=== PATIENT | female | born 1940 | race Caucasian/White ===

== ENCOUNTER → 2018-08-04 | Outpatient (CLI) | payer OTHER | END | disposition home or self-care (01) | LOC: SHCH 08:27 | PROVIDERS: ATTEND Internal Medicine Cardiovascular Disease | DX: I07.1 Rheumatic tricuspid insufficiency (principal); I48.0 Paroxysmal atrial fibrillation | CPT/HCPCS: 93306 ==

== ENCOUNTER → 2021-03-14 | Outpatient (CLI) | payer OTHER ==
[~2021-03-14] MED LIST: ACYC400T20 PO; APIX5TAB PO; CARB200T6 PO; DRON400T7 PO; L.AC1CAP6 PO; LISI2.5T13 PO; METO50 PO; OMEP40CA21 PO
== END | disposition home or self-care (01) ==
LOC: OIH 11:04
PROVIDERS: ATTEND Internal Medicine Cardiovascular Disease
DX: Z13.6 Encounter for screening for cardiovascular disorders (principal); I25.10 Atherosclerotic heart disease of native coronary artery without angina pectoris
CPT/HCPCS: 75571

== ENCOUNTER → 2021-10-06 | Outpatient (CLI) | payer OTHER | END | disposition home or self-care (01) | LOC: SHCH 10:30 | PROVIDERS: ATTEND Internal Medicine Cardiovascular Disease | DX: I36.1 Nonrheumatic tricuspid (valve) insufficiency (principal); I42.9 Cardiomyopathy, unspecified; I11.9 Hypertensive heart disease without heart failure | CPT/HCPCS: 93306 ==

== ENCOUNTER → 2022-09-04 | Outpatient (CLI) | payer OTHER ==
[~2022-09-04] MED LIST changes: +AMIO200T44 PO; -DRON400T7 PO; +FURO40TA7 PO; +LOSA25TA2 PO; -METO50 PO; +METO50TA9 PO; +OMEP20CA12 PO; -OMEP40CA21 PO
[2022-09-04 16:36] LABS: THYROID STIMULATING HORMONE 5.93 uIU/mL (0.36-3.74)
== END | disposition home or self-care (01) ==
LOC: LAB 13:43
PROVIDERS: ATTEND Internal Medicine Cardiovascular Disease
DX: I10 Essential (primary) hypertension (principal)
CPT/HCPCS: 36415; 84439; 84443

== ENCOUNTER 2022-09-08 15:28 | Inpatient (IN) | payer OTHER ==
[~2022-09-08] VITALS: Ht 162.6 cm; Wt 54.0 kg
[2022-09-08 16:22] LABS: BASOPHILS % (AUTO) 0.3 % (0.0-5.0); EOSINOPHILS % (AUTO) 0.2 % (0.0-8.0); HEMATOCRIT 50.6 % (36-48); LYMPHOCYTES % (AUTO) 17.1 % (21.0-51.0); MEAN CORPUSCULAR HEMOGLOBIN 32.9 pg (27.0-33.0); MEAN CORPUSCULAR HGB CONC 33.4 g/dL (32.0-36.0); MEAN CORPUSCULAR VOLUME 98.6 fL (79-99); NEUTROPHILS % (AUTO) 73.6 % (40.0-77.0); PLATELET COUNT (AUTO) 201 K/uL (130-400); RED BLOOD CELL COUNT(AUTO) 5.13 MIL/uL (4.00-5.50); RED CELL DISTRIBUTION WIDTH 13.2 % (11.0-15.5); WHITE BLOOD COUNT (AUTO) 14.6 K/uL (4.8-10.8)
[2022-09-08 16:32] LABS: INR 1.27 (0.85-1.15); PROTHROMBIN TIME 13.7 SEC (9.6-11.6)
[2022-09-08 16:33] LABS: PARTIAL THROMBOPLASTIN TIME 30.5 SEC (26.3-35.5)
[2022-09-08 16:49] LABS: B-TYPE NATRIURETIC PEPTIDE 1300 pg/mL (0-100)
[2022-09-08 17:08] LABS: CREATININE 0.9 mg/dL (0.5-1.5); POTASSIUM 4.4 mmol/L (3.5-5.1)
[2022-09-08 17:13] LABS: ALBUMIN 3.2 g/dL (3.5-5.0); MAGNESIUM 1.8 mg/dL (1.80-2.40); TOTAL PROTEIN, SERUM 6.3 g/dL (6.0-8.3)
[2022-09-08] MEDS ORDERED: POTASSIUM CHLORIDE 20MEQ/100ML 100 ML IV PRN (18:00)
[2022-09-08] MEDS ORDERED: AMIODARONE 900MG VIAL 360 MG in DEXTROSE 5%-WATER 200 ML IV SCH (18:00)
[2022-09-08] MEDS ORDERED: MAGNESIUM 2GM PREMIX 50ML 50 ML IV PRN (18:00)
[2022-09-08] MEDS ORDERED: DEXTROSE 50%-WATER 50 ML DISP.SYRIN IV PRN (18:00)
[2022-09-08] MEDS ORDERED: GLUCAGON 1MG KIT 1 MG ML IM PRN (18:00)
[2022-09-08] MEDS ORDERED: FUROSEMIDE 20MG VIAL IV ONE (18:00)
[2022-09-08] MEDS ORDERED: AMIODARONE 900MG VIAL 150 MG in DEXTROSE 5%-WATER 100 ML IV SCH (18:15)
[2022-09-08] MEDS: MAGNESIUM 2GM PREMIX 50ML 50 ML IV SCH (18:19)
[2022-09-08] MEDS ORDERED: LACTULOSE 20 GM/30 ML UDCUP PO PRN (18:30)
[2022-09-08] MEDS ORDERED: ACETAMINOPHEN 325 MG TAB PO PRN (18:30)
[2022-09-08] MEDS ORDERED: DOCUSATE SODIUM 100 MG CAP PO PRN (18:30)
[2022-09-08] MEDS ORDERED: ACETAMINOPHEN 650 MG SUPPOSITORY RC PRN (18:30)
[2022-09-08 20:30] LABS: APPEARANCE,URINE CLEAR (CLEAR); BILIRUBIN,URINE NEGATIVE (NEGATIVE); COLOR,URINE YELLOW (YELLOW); GLUCOSE, URINE (UA) NEGATIVE (NEGATIVE); KETONES,URINE NEGATIVE (NEGATIVE); LEUKOCYTE ESTERASE ,URINE NEGATIVE Leu/uL (NEGATIVE); NITRATE,URINE NEGATIVE (NEGATIVE); OCCULT BLOOD,URINE SMALL (NEGATIVE); PH,URINE 5.5 (5.0-8.0); PROTEIN,URINE 20 mg/dL (NEGATIVE); UROBILINOGEN,URINE 3 mg/dL (0.2-1.0)
[2022-09-08 20:33] LABS: BACTERIA,URINE MOD /HPF (None Seen); MUCUS,URINE RARE LPF (None Seen); RBC,URINE 0-1 /HPF (0-1); SQUAMOUS EPITHELIAL CELL,UR RARE /HPF (0-2)
[2022-09-08] MEDS: INSULIN HUMULIN R 100 UNIT/ML 3ML SQ SCH (21:00)
[2022-09-08] MEDS ORDERED: FUROSEMIDE 100MG VIAL 100 MG in 0.9%NACL 100ML 100 ML IV SCH (22:00)
[2022-09-08] MEDS ORDERED: FUROSEMIDE 20MG VIAL ONE ×2 (22:12→22:13)
[2022-09-08] MEDS: APIXABAN 5 MG TABLET PO SCH (22:22)
[2022-09-08 22:50] LABS: ABG BASE EXCESS -0.8 mmol/L (-2.0-3.0); ABG OXYGEN SATURATION 98.2 % (95.0-99.0); ABG PCO2 32 mmHg (32-45)
[2022-09-09] VITALS (35 sets, daily range): BP systolic 88–134; BP diastolic 44–91
[2022-09-09] MEDS: AMIODARONE 900MG VIAL 540 MG in DEXTROSE 5%-WATER 300 ML IV SCH ×2 (01:08→16:54)
[2022-09-09] MEDS ORDERED: LABETALOL 20MG SYG IV ONE (03:30)
[2022-09-09] MEDS ORDERED: DIGOXIN 125 MCG TABLET PO ONE (04:17)
[2022-09-09] MEDS ORDERED: DIGOXIN 250 MCG/ML 2ML AMP ONE (04:19)
[2022-09-09] MEDS ORDERED: METOPROLOL SUCCINATE 50 MG TAB.SR.24H PO SCH (04:30)
[2022-09-09] MEDS: INSULIN HUMULIN R 100 UNIT/ML 3ML SQ SCH ×4 (07:30→19:58)
[2022-09-09] MEDS ORDERED: FUROSEMIDE 20MG VIAL ONE (07:50)
[2022-09-09] MEDS: FUROSEMIDE 40MG VIAL IV SCH ×2 (07:55→19:43)
[2022-09-09 08:29] LABS: BASOPHILS % (AUTO) 0.5 % (0.0-5.0); EOSINOPHILS % (AUTO) 0.3 % (0.0-8.0); HEMATOCRIT 44.6 % (36-48); LYMPHOCYTES % (AUTO) 21.9 % (21.0-51.0); MEAN CORPUSCULAR HEMOGLOBIN 32.8 pg (27.0-33.0); MEAN CORPUSCULAR HGB CONC 34.8 g/dL (32.0-36.0); MEAN CORPUSCULAR VOLUME 94.3 fL (79-99); NEUTROPHILS % (AUTO) 68.7 % (40.0-77.0); PLATELET COUNT (AUTO) 182 K/uL (130-400); RED BLOOD CELL COUNT(AUTO) 4.73 MIL/uL (4.00-5.50); RED CELL DISTRIBUTION WIDTH 13.1 % (11.0-15.5); WHITE BLOOD COUNT (AUTO) 12.6 K/uL (4.8-10.8)
[2022-09-09] MEDS: FAMOTIDINE 20MG VIAL IV SCH (08:39)
[2022-09-09] MEDS: APIXABAN 5 MG TABLET PO SCH ×2 (08:40→19:55)
[2022-09-09] MEDS: METOPROLOL SUCCINATE 50 MG TAB.SR.24H PO SCH ×2 (08:40→20:37)
[2022-09-09] MEDS: CARBAMAZEPINE 200 MG TABLET PO SCH ×2 (08:40→19:59)
[2022-09-09] MEDS: AMIODARONE 200 MG TABLET PO SCH ×2 (08:40→20:37)
[2022-09-09 08:54] LABS: CREATININE 0.9 mg/dL (0.5-1.5); MAGNESIUM 2.6 mg/dL (1.80-2.40); PHOSPHORUS 3.7 mg/dL (2.5-4.9); POTASSIUM 3.6 mmol/L (3.5-5.1); THYROID STIMULATING HORMONE 4.64 uIU/mL (0.36-3.74)
[2022-09-09] MEDS: KCL 20 MEQ ERTAB PO PRN (09:45)
[2022-09-09] MEDS: LOSARTAN 25 MG TABLET PO SCH ×2 (09:45→21:00)
[2022-09-09] MEDS: POTASSIUM CHLORIDE 10% ELIXIR 20 MEQ/15 ML UDCUP PO PRN (15:09)
[2022-09-10] VITALS (32 sets, daily range): BP systolic 85–134; BP diastolic 54–104
[2022-09-10 04:01] LABS: BASOPHILS % (AUTO) 0.2 % (0.0-5.0); EOSINOPHILS % (AUTO) 0.1 % (0.0-8.0); HEMATOCRIT 43.7 % (36-48); LYMPHOCYTES % (AUTO) 9.2 % (21.0-51.0); MEAN CORPUSCULAR HEMOGLOBIN 33.5 pg (27.0-33.0); MEAN CORPUSCULAR HGB CONC 34.1 g/dL (32.0-36.0); MEAN CORPUSCULAR VOLUME 98.2 fL (79-99); MONOCYTES % (AUTO) 6.3 % (3.0-13.0); NEUTROPHILS % (AUTO) 83.3 % (40.0-77.0); NUCLEATED RED BLOOD CELLS 0.2 % (0.0-0.19); PLATELET COUNT (AUTO) 163 K/uL (130-400); RED BLOOD CELL COUNT(AUTO) 4.45 MIL/uL (4.00-5.50); RED CELL DISTRIBUTION WIDTH 13.2 % (11.0-15.5); WHITE BLOOD COUNT (AUTO) 12.9 K/uL (4.8-10.8)
[2022-09-10 04:16] LABS: CREATININE 1.5 mg/dL (0.5-1.5); POTASSIUM 4.2 mmol/L (3.5-5.1)
[2022-09-10] MEDS: INSULIN HUMULIN R 100 UNIT/ML 3ML SQ SCH (07:30)
[2022-09-10] MEDS: FAMOTIDINE 20MG VIAL IV SCH (08:54)
[2022-09-10] MEDS: FUROSEMIDE 40MG VIAL IV SCH ×2 (08:54→20:07)
[2022-09-10] MEDS: LOSARTAN 25 MG TABLET PO SCH ×2 (08:54→21:00)
[2022-09-10] MEDS: CARBAMAZEPINE 200 MG TABLET PO SCH ×2 (08:54→20:07)
[2022-09-10] MEDS: APIXABAN 5 MG TABLET PO SCH ×2 (08:55→20:08)
[2022-09-10] MEDS: METOPROLOL SUCCINATE 50 MG TAB.SR.24H PO SCH ×2 (08:55→20:07)
[2022-09-10] MEDS: AMIODARONE 200 MG TABLET PO SCH ×2 (08:55→20:07)
[2022-09-10] MEDS: ONDANSETRON 4MG INJ IVP PRN ×2 (09:30→16:03)
[2022-09-10] MEDS ORDERED: PROPOFOL 1000 MG/100 ML 0 ML IV ONE (18:02)
[2022-09-10] MEDS: AMIODARONE 900MG VIAL 540 MG in DEXTROSE 5%-WATER 300 ML IV SCH (19:51)
[2022-09-11] VITALS (35 sets, daily range): BP systolic 89–150; BP diastolic 48–98
[2022-09-11 03:46] LABS: BASOPHILS % (AUTO) 0.3 % (0.0-5.0); EOSINOPHILS % (AUTO) 0.3 % (0.0-8.0); HEMATOCRIT 44.9 % (36-48); LYMPHOCYTES % (AUTO) 20.2 % (21.0-51.0); MEAN CORPUSCULAR HEMOGLOBIN 32.8 pg (27.0-33.0); MEAN CORPUSCULAR HGB CONC 34.1 g/dL (32.0-36.0); MEAN CORPUSCULAR VOLUME 96.4 fL (79-99); MONOCYTES % (AUTO) 9.1 % (3.0-13.0); NEUTROPHILS % (AUTO) 69.3 % (40.0-77.0); NUCLEATED RED BLOOD CELLS 0.5 % (0.0-0.19); PLATELET COUNT (AUTO) 193 K/uL (130-400); RED BLOOD CELL COUNT(AUTO) 4.66 MIL/uL (4.00-5.50); RED CELL DISTRIBUTION WIDTH 13.2 % (11.0-15.5); WHITE BLOOD COUNT (AUTO) 12.1 K/uL (4.8-10.8)
[2022-09-11 03:56] LABS: CREATININE 1.5 mg/dL (0.5-1.5); POTASSIUM 4.3 mmol/L (3.5-5.1)
[2022-09-11] MEDS ORDERED: MIDAZOLAM HCL 1 MG/ML 2ML VIAL IVP ONE (07:30)
[2022-09-11] MEDS ORDERED: FENTANYL CITRATE PF 50 MCG/1 ML 2ML VIAL IVP ONE (07:30)
[2022-09-11] MEDS: APIXABAN 5 MG TABLET PO SCH ×2 (10:49→21:28)
[2022-09-11] MEDS: METOPROLOL SUCCINATE 50 MG TAB.SR.24H PO SCH ×2 (10:49→21:28)
[2022-09-11] MEDS: AMIODARONE 200 MG TABLET PO SCH ×2 (10:49→21:28)
[2022-09-11] MEDS: CARBAMAZEPINE 200 MG TABLET PO SCH ×2 (10:49→21:27)
[2022-09-11] MEDS: FUROSEMIDE 40 MG TABLET PO SCH ×2 (10:49→17:01)
[2022-09-11] MEDS: FAMOTIDINE 20MG VIAL IV SCH (10:50)
[2022-09-11] MEDS: LOSARTAN 25 MG TABLET PO SCH ×2 (10:50→21:28)
[2022-09-12 03:55] LABS: BASOPHILS % (AUTO) 0.3 % (0.0-5.0); EOSINOPHILS % (AUTO) 0.5 % (0.0-8.0); HEMATOCRIT 48.9 % (36-48); LYMPHOCYTES % (AUTO) 13.3 % (21.0-51.0); MEAN CORPUSCULAR HEMOGLOBIN 32.8 pg (27.0-33.0); MEAN CORPUSCULAR HGB CONC 32.3 g/dL (32.0-36.0); MEAN CORPUSCULAR VOLUME 101.5 fL (79-99); NEUTROPHILS % (AUTO) 77.2 % (40.0-77.0); PLATELET COUNT (AUTO) 162 K/uL (130-400); RED BLOOD CELL COUNT(AUTO) 4.82 MIL/uL (4.00-5.50); RED CELL DISTRIBUTION WIDTH 13.1 % (11.0-15.5); WHITE BLOOD COUNT (AUTO) 8.7 K/uL (4.8-10.8)
[2022-09-12 04:04] LABS: POTASSIUM 3.6 mmol/L (3.5-5.1)
[2022-09-12 04:15] VITALS: BP 118/56
[2022-09-12] MEDS: POTASSIUM CHLORIDE 10% ELIXIR 20 MEQ/15 ML UDCUP PO PRN (06:18)
[2022-09-12] MEDS ORDERED: AMIO200T68 PO (07:00)
[2022-09-12 08:50] VITALS: BP 134/79
[2022-09-12 12:04] VITALS: BP 138/74
[2022-09-12] MEDS: LOSARTAN 25 MG TABLET PO SCH ×2 (12:12→20:26)
[2022-09-12] MEDS: FUROSEMIDE 40 MG TABLET PO SCH ×2 (12:12→17:58)
[2022-09-12] MEDS: METOPROLOL SUCCINATE 50 MG TAB.SR.24H PO SCH ×2 (12:13→20:27)
[2022-09-12] MEDS: CARBAMAZEPINE 200 MG TABLET PO SCH ×2 (12:13→20:26)
[2022-09-12] MEDS: APIXABAN 5 MG TABLET PO SCH ×2 (12:15→20:27)
[2022-09-12] MEDS: FAMOTIDINE 20MG VIAL IV SCH (12:16)
[2022-09-12] MEDS: AMIODARONE 200 MG TABLET PO SCH ×2 (12:16→20:26)
[2022-09-12 16:44] VITALS: BP 110/70
[2022-09-12 20:11] VITALS: BP 129/70
[2022-09-13 00:09] VITALS: BP 137/85
[2022-09-13 03:47] LABS: BASOPHILS % (AUTO) 0.1 % (0.0-5.0); EOSINOPHILS % (AUTO) 0.8 % (0.0-8.0); LYMPHOCYTES % (AUTO) 13.8 % (21.0-51.0); MEAN CORPUSCULAR HEMOGLOBIN 32.5 pg (27.0-33.0); MEAN CORPUSCULAR HGB CONC 33.9 g/dL (32.0-36.0); MEAN CORPUSCULAR VOLUME 96.1 fL (79-99); MONOCYTES % (AUTO) 9.6 % (3.0-13.0); NEUTROPHILS % (AUTO) 74.8 % (40.0-77.0); PLATELET COUNT (AUTO) 194 K/uL (130-400); RED CELL DISTRIBUTION WIDTH 13.1 % (11.0-15.5); WHITE BLOOD COUNT (AUTO) 10.1 K/uL (4.8-10.8)
[2022-09-13 03:59] LABS: ALBUMIN 3.2 g/dL (3.5-5.0); CREATININE 0.7 mg/dL (0.5-1.5); MAGNESIUM 1.7 mg/dL (1.80-2.40); POTASSIUM 3.5 mmol/L (3.5-5.1); TOTAL PROTEIN, SERUM 6.7 g/dL (6.0-8.3)
[2022-09-13 04:08] VITALS: BP 133/82
[2022-09-13] MEDS: KCL 20 MEQ ERTAB PO PRN ×2 (06:17→10:04)
[2022-09-13] MEDS: MAGNESIUM 2GM PREMIX 50ML 50 ML IV SCH (06:18)
[2022-09-13 08:06] VITALS: BP 121/66
[2022-09-13] MEDS: FUROSEMIDE 40 MG TABLET PO SCH (09:58)
[2022-09-13] MEDS: APIXABAN 5 MG TABLET PO SCH (09:58)
[2022-09-13] MEDS: AMIODARONE 200 MG TABLET PO SCH (09:58)
[2022-09-13] MEDS: LOSARTAN 25 MG TABLET PO SCH (09:58)
[2022-09-13] MEDS: FAMOTIDINE 20MG VIAL IV SCH (09:58)
[2022-09-13] MEDS: CARBAMAZEPINE 200 MG TABLET PO SCH (09:58)
[2022-09-13] MEDS: METOPROLOL SUCCINATE 50 MG TAB.SR.24H PO SCH (09:59)
[2022-09-13 12:05] VITALS: BP 120/78
[2022-09-13 16:00] VITALS: BP 87/92
== END 2022-09-13 16:37 | DRG 308 ==
LOC: EDH 15:28 → EDHIP 17:52 → 2BH 09-09 09:35 → 2AH 09-11 16:54
PROVIDERS: ADMIT Internal Medicine Pulmonary Disease; ATTEND Internal Medicine Pulmonary Disease
PROC: 5A2204Z Restoration of Cardiac Rhythm, Single (ICD-10-PCS; principal; 2022-09-11)
DX: I48.92 Unspecified atrial flutter (principal); I33.0 Acute and subacute infective endocarditis; I50.43 Acute on chronic combined systolic (congestive) and diastolic (congestive) heart failure; J96.01 Acute respiratory failure with hypoxia; I13.0 Hypertensive heart and chronic kidney disease with heart failure and stage 1 through stage 4 chronic kidney disease, or unspecified chronic kidney disease; E87.1 Hypo-osmolality and hyponatremia; I48.19 Other persistent atrial fibrillation; I42.0 Dilated cardiomyopathy; K21.9 Gastro-esophageal reflux disease without esophagitis; B96.20 Unspecified Escherichia coli [E. coli] as the cause of diseases classified elsewhere; R82.71 Bacteriuria; D72.829 Elevated white blood cell count, unspecified; E78.00 Pure hypercholesterolemia, unspecified; G40.909 Epilepsy, unspecified, not intractable, without status epilepticus; I08.1 Rheumatic disorders of both mitral and tricuspid valves; N18.32 Chronic kidney disease, stage 3b; Z79.01 Long term (current) use of anticoagulants; Z95.0 Presence of cardiac pacemaker; Z79.82 Long term (current) use of aspirin; Z79.899 Other long term (current) drug therapy; Z82.49 Family history of ischemic heart disease and other diseases of the circulatory system; Z83.3 Family history of diabetes mellitus; Z88.0 Allergy status to penicillin; Z90.710 Acquired absence of both cervix and uterus
CPT/HCPCS: 36415; 36600; 71045; 80048; 80053; 81001; 82803; 82948; 83735; 83880; 84100; 84145; 84443; 84484; 85025; 85610; 85730; 93005; 93306; 93356; 97039; G0378; J0282; J1160; J1940; J2250; J2405; J2704; J3010; J3475; J3490; J7060